=== PATIENT | male | born 1945 | race Caucasian/White ===

== ENCOUNTER 2019-04-30 20:51 | Inpatient (IN) | payer MEDICARE, OTHER ==
[~2019-04-30] VITALS: Ht 182.9 cm; Wt 84.2 kg
[2019-04-30] MEDS ORDERED: NITROGLYCERIN/D5W PMX 250 ML IV SCH (20:58)
[2019-04-30] MEDS ORDERED: SODIUM CHLORIDE FLUSH 10ML SYR IVF ONE (21:00)
--- NOTE | 2019-04-30 21:02 | NUR ---
PT BIB CARE FLIGHT FROM [facility]. PT WENT TO [facility] TODAY WITH CHEST PAIN/EPIGASTRIC PAIN THAT WENT TO HIS ELBOWS. PT WAS FOUND TO HAVE ELEVATED TROPS. EKG DONE. FINANCE ADVISOR ON. PT HAS A LEFT BUNDLE BRANCH NOTED. PT SEEN BY DR ABDUL. VS STABLE. REPORT GIVEN TO RADHA JACKSON.
--- NOTE | 2019-04-30 21:06 | NUR ---
PT REPORTS INITIAL PAIN LAST NIGHT "AROUND 10 PM" RELIEVED WITH "A LARGE BURP AND PASSING GAS". PAIN RETURNED AT APPROX 4PM WO RELIEF. PT NOW LAYING ON GURNEY, AWAKE/ALERT. PWD. PT REPORTS 4/10 PAIN. PER ERP, TO CONITNUE NITRO DRIP. DRIP REQUESTED FROM PHARMACY. BP/SPO2/ECG MONITORING IN PLACE. NSR W/ ST DEPRESSION AND L BBB ON EKG.
[2019-04-30 21:14] LABS: BASOPHILS # (AUTO) 0.06 x10^3/uL (0-0.1); BASOPHILS % (AUTO) 0 % (0-1); EOSINOPHILS # (AUTO) 0.06 x10^3/uL (0-0.4); EOSINOPHILS % (AUTO) 0 % (1-7); LYMPHOCYTES # (AUTO) 3.71 x10^3/uL (1-3.4); LYMPHOCYTES % (AUTO) 25 % (22-44); MD NO; MEAN CORPUSCULAR HEMOGLOBIN 30.3 pg (27.5-34.5); MEAN CORPUSCULAR HGB CONC 33.1 g/dL (33.2-36.2); MEAN CORPUSCULAR VOLUME 91.4 fL (81-97); MEAN PLATELET VOLUME 7.9 fL (7.4-10.4); MONOCYTES # (AUTO) 0.69 x10^3/uL (0.2-0.8); MONOCYTES % (AUTO) 5 % (2-9); NEUTROPHILS # (AUTO) 10.27 x10^3/uL (1.8-6.8); NEUTROPHILS % (AUTO) 69 % (42-75); PLATELET COUNT 278 x10^3/uL (130-400); RED BLOOD COUNT 5.44 x10^6/uL (4.38-5.82); RED CELL DISTRIBUTION WIDTH 13.7 % (9.4-14.8)
[2019-04-30 21:22] LABS: INTERNATIONAL NORMALIZED RATIO 1.1 (0.93-1.1); PROTHROMBIN TIME 11.5 Seconds (9.6-11.5)
[2019-04-30 21:23] LABS: ALANINE AMINOTRANSFERASE 34 U/L (12-78); ALBUMIN 3.9 g/dL (3.4-5.0); ANION GAP 6 mmol/L (5-15); CALCIUM 8.6 mg/dL (8.5-10.1); CHLORIDE 109 mmol/L (98-107); CREATININE 1.38 mg/dL (0.7-1.3)
[2019-04-30 21:28] LABS: ALKALINE PHOSPHATASE 72 U/L (45-117); BILIRUBIN,TOTAL 0.8 mg/dL (0.2-1.0); TOTAL PROTEIN 7.6 g/dL (6.4-8.2)
--- NOTE | 2019-04-30 21:31 | NUR ---
PT RESTING COMFORTABLY IN GURNEY W/ EYES CLOSED. PER ERP, HOLD NITRO DRIP. UPON RETURN OF PAIN, START NITRO DRIP
[2019-04-30] MEDS ORDERED: AMLO10TA8 PO (21:54)
[2019-04-30] MEDS ORDERED: LOSA100T14 PO (21:54)
[2019-04-30] MEDS ORDERED: LEVO25TA4 PO (21:54)
[2019-04-30] MEDS ORDERED: SIMV5TAB14 PO (21:54)
[2019-04-30] MEDS ORDERED: CARV12.52 PO (21:54)
[2019-04-30] MEDS ORDERED: ASPI-496 PO (21:54)
[2019-04-30] MEDS ORDERED: SODIUM CHLORIDE FLUSH 10ML SYR IVF PRN (22:00)
--- NOTE | 2019-04-30 22:22 | NUR ---
REPORT TO ASUNCION, ON TELE
[2019-04-30 22:40] VITALS: BP 160/79
[2019-04-30] MEDS ORDERED: SODIUM CHLORIDE 0.9% 1,000 ML IV SCH (22:52)
[2019-04-30] MEDS ORDERED: ONDANSETRON 2MG/ML, 2ML IVPush PRN (23:00)
[2019-04-30] MEDS ORDERED: ACETAMINOPHEN 325 MG TABLET PO PRN (23:00)
[2019-04-30] MEDS ORDERED: TEMAZEPAM 15 MG CAPSULE PO PRN (23:00)
[2019-04-30] MEDS ORDERED: morphine SULFATE 10 MG/ML, 1ML IVPush PRN (23:00)
[2019-04-30] MEDS ORDERED: LIDODERM 5% PATCH TD PRN (23:00)
[2019-04-30] MEDS ORDERED: hydrALAzine 20 MG/ML, 1ML IVPush PRN (23:00)
[2019-04-30] MEDS ORDERED: DOCUSATE 100 MG CAPSULE PO PRN (23:00)
[2019-04-30] MEDS ORDERED: SIMVASTATIN 20 MG TABLET PO SCH (23:00)
[2019-04-30] MEDS: CARVEDILOL 12.5 MG TABLET PO SCH (23:58)
[2019-05-01 02:07] VITALS: BP 164/75
[2019-05-01 03:21] LABS: BASOPHILS # (AUTO) 0.03 x10^3/uL (0-0.1); BASOPHILS % (AUTO) 0 % (0-1); EOSINOPHILS # (AUTO) 0.02 x10^3/uL (0-0.4); EOSINOPHILS % (AUTO) 0 % (1-7); LYMPHOCYTES # (AUTO) 3.35 x10^3/uL (1-3.4); LYMPHOCYTES % (AUTO) 25 % (22-44); MD NO; MEAN CORPUSCULAR HEMOGLOBIN 30.4 pg (27.5-34.5); MEAN CORPUSCULAR HGB CONC 33.5 g/dL (33.2-36.2); MEAN CORPUSCULAR VOLUME 90.7 fL (81-97); MEAN PLATELET VOLUME 7.9 fL (7.4-10.4); MONOCYTES # (AUTO) 1.02 x10^3/uL (0.2-0.8); MONOCYTES % (AUTO) 8 % (2-9); NEUTROPHILS # (AUTO) 9.02 x10^3/uL (1.8-6.8); NEUTROPHILS % (AUTO) 67 % (42-75); PLATELET COUNT 252 x10^3/uL (130-400); RED BLOOD COUNT 5.18 x10^6/uL (4.38-5.82); RED CELL DISTRIBUTION WIDTH 13.9 % (9.4-14.8)
[2019-05-01 03:32] LABS: ANION GAP 6 mmol/L (5-15); CALCIUM 8.4 mg/dL (8.5-10.1); CHLORIDE 111 mmol/L (98-107); CREATININE 1.18 mg/dL (0.7-1.3)
[2019-05-01] MEDS ORDERED: HEPARIN 25,000 UNITS/500ML PMX 500 ML IV PRN (04:00)
[2019-05-01] MEDS ORDERED: HEPARIN 5,000 UNITS/ML, 1ML IV ONE (04:00)
[2019-05-01] MEDS ORDERED: HEPARIN 5,000 UNITS/ML, 1ML IV PRN (04:00)
[2019-05-01 04:40] VITALS: BP 164/78
[2019-05-01] MEDS: LEVOTHYROXINE MC SCH ×5 (07:00→19:56)
[2019-05-01 07:10] VITALS: BP 156/80
[2019-05-01] MEDS: CARVEDILOL 12.5 MG TABLET PO SCH (08:06)
[2019-05-01] MEDS: LOSARTAN 50MG TABLET PO SCH (08:15)
[2019-05-01] MEDS: AMLODIPINE 10 MG TAB PO SCH (08:15)
[2019-05-01] MEDS ORDERED: CARVEDILOL 12.5 MG TABLET PO SCH (09:00)
[2019-05-01] MEDS ORDERED: LEVOTHYROXINE 25 MCG TABLET PO SCH (09:00)
[2019-05-01] MEDS ORDERED: MIDAZOLAM 1 MG/ML, 5ML ONE (12:16)
[2019-05-01] MEDS ORDERED: BIVALIRUDIN 250 MG ONE (12:16)
[2019-05-01] MEDS ORDERED: LIDOCAINE 1%, 20ML ONE (12:16)
[2019-05-01] MEDS ORDERED: FENTANYL PF 100 MCG/2ML ONE (12:16)
[2019-05-01] MEDS ORDERED: TICAGRELOR 90 MG TABLET ONE (12:16)
[2019-05-01 13:12] VITALS: BP 166/76
[2019-05-01 19:41] VITALS: BP 150/80
[2019-05-01] MEDS: ATORVASTATIN 40 MG TABLET PO SCH (19:56)
[2019-05-02 00:28] VITALS: BP 150/74
[2019-05-02 04:07] VITALS: BP 165/86
[2019-05-02 05:18] LABS: BASOPHILS # (AUTO) 0.05 x10^3/uL (0-0.1); BASOPHILS % (AUTO) 0 % (0-1); EOSINOPHILS # (AUTO) 0.19 x10^3/uL (0-0.4); EOSINOPHILS % (AUTO) 2 % (1-7); LYMPHOCYTES # (AUTO) 2.87 x10^3/uL (1-3.4); LYMPHOCYTES % (AUTO) 26 % (22-44); MD NO; MEAN CORPUSCULAR HEMOGLOBIN 30.4 pg (27.5-34.5); MEAN CORPUSCULAR HGB CONC 33.5 g/dL (33.2-36.2); MEAN CORPUSCULAR VOLUME 90.5 fL (81-97); MONOCYTES # (AUTO) 0.96 x10^3/uL (0.2-0.8); MONOCYTES % (AUTO) 9 % (2-9); NEUTROPHILS # (AUTO) 6.95 x10^3/uL (1.8-6.8); NEUTROPHILS % (AUTO) 63 % (42-75); PLATELET COUNT 217 x10^3/uL (130-400); RED CELL DISTRIBUTION WIDTH 13.8 % (9.4-14.8)
[2019-05-02 05:24] LABS: ANION GAP 7 mmol/L (5-15); CALCIUM 8.3 mg/dL (8.5-10.1); CHLORIDE 110 mmol/L (98-107); CREATININE 1.31 mg/dL (0.7-1.3)
[2019-05-02] MEDS: ASPIRIN 81 MG TABLET EC PO SCH (05:32)
[2019-05-02 06:53] VITALS: BP 140/98
[2019-05-02] MEDS: TICAGRELOR 90 MG TABLET PO SCH ×2 (08:45→19:41)
[2019-05-02] MEDS: AMLODIPINE 10 MG TAB PO SCH (08:46)
[2019-05-02] MEDS: LOSARTAN 50MG TABLET PO SCH (08:46)
[2019-05-02] MEDS ORDERED: POTASSIUM CHLORIDE 20 MEQ TAB.ER.PRT PO ONE (10:00)
[2019-05-02 12:22] VITALS: BP 144/78
[2019-05-02] MEDS ORDERED: LOSARTAN 50MG TABLET PO SCH (13:00)
[2019-05-02 19:24] VITALS: BP 170/71
[2019-05-02] MEDS: ATORVASTATIN 40 MG TABLET PO SCH (19:41)
[2019-05-02 20:00] VITALS: BP 159/82
[2019-05-03 01:18] VITALS: BP 163/73
[2019-05-03] MEDS: ASPIRIN 81 MG TABLET EC PO SCH (05:38)
[2019-05-03 05:41] LABS: ANION GAP 8 mmol/L (5-15); CALCIUM 8.8 mg/dL (8.5-10.1); CHLORIDE 110 mmol/L (98-107)
[2019-05-03 05:42] LABS: CREATININE 1.37 mg/dL (0.7-1.3)
[2019-05-03 06:32] VITALS: BP 150/81
[2019-05-03] MEDS ORDERED: LOSARTAN 50MG TABLET PO SCH (09:00)
[2019-05-03] MEDS: TICAGRELOR 90 MG TABLET PO SCH (09:36)
[2019-05-03] MEDS: AMLODIPINE 10 MG TAB PO SCH (09:37)
[2019-05-03 12:04] VITALS: BP 151/79
[2019-05-03] MEDS ORDERED: ATOR40TA78 PO (13:54)
[2019-05-03] MEDS ORDERED: TICA90TA PO (13:54)
[2019-05-03] MEDS ORDERED: HYDR25TA6 PO (13:56)
== END 2019-05-03 15:05 | disposition home or self-care (01) | DRG 246 ==
LOC: ED 21:49 → EDIP 21:54 → 5SO 22:36 → DCLOUNGE 05-03 14:43
PROVIDERS: ADMIT Internal Medicine; ATTEND Internal Medicine
PROC: 027034Z Dilation of Coronary Artery, One Artery with Drug-eluting Intraluminal Device, Percutaneous Approach (ICD-10-PCS; principal; 2019-05-01)
PROC: 4A023N7 Measurement of Cardiac Sampling and Pressure, Left Heart, Percutaneous Approach (ICD-10-PCS; 2019-05-01)
PROC: B2111ZZ Fluoroscopy of Multiple Coronary Arteries using Low Osmolar Contrast (ICD-10-PCS; 2019-05-01)
PROC: B2181ZZ Fluoroscopy of Left Internal Mammary Bypass Graft using Low Osmolar Contrast (ICD-10-PCS; 2019-05-01)
PROC: B2131ZZ Fluoroscopy of Multiple Coronary Artery Bypass Grafts using Low Osmolar Contrast (ICD-10-PCS; 2019-05-01)
DX: T82.858A Stenosis of other vascular prosthetic devices, implants and grafts, initial encounter (principal); I21.4 Non-ST elevation (NSTEMI) myocardial infarction; N17.0 Acute kidney failure with tubular necrosis; E03.9 Hypothyroidism, unspecified; E78.5 Hyperlipidemia, unspecified; I11.9 Hypertensive heart disease without heart failure; I34.0 Nonrheumatic mitral (valve) insufficiency; I25.10 Atherosclerotic heart disease of native coronary artery without angina pectoris; I25.5 Ischemic cardiomyopathy; I37.1 Nonrheumatic pulmonary valve insufficiency; I44.30 Unspecified atrioventricular block; I44.7 Left bundle-branch block, unspecified; Z80.0 Family history of malignant neoplasm of digestive organs; Z85.528 Personal history of other malignant neoplasm of kidney; Z87.891 Personal history of nicotine dependence; Z98.41 Cataract extraction status, right eye; Z90.5 Acquired absence of kidney; I25.2 Old myocardial infarction; Z95.1 Presence of aortocoronary bypass graft
CPT/HCPCS: 36415; 80048; 80053; 83735; 83880; 84484; 85025; 85520; 85610; 85730; 93005; 93306; 93459; 99156; 99157; C1760; C1876; C1894; C9600; G0378; J0583; J1644; J2250; J3010; C1887; J2270; J7030; Q9967